=== PATIENT | male | born 1950 | race Caucasian/White ===

== ENCOUNTER 2020-01-03 00:14 | Day surgery (SDC) | payer MEDICARE, SELFPAY ==
[2019-12-28 13:14] VITALS: BMI 30.4
[2020-01-03 08:48] VITALS: BP 136/93; PULSE 58; RESP 16; TEMP 36.6; O2SAT 99; BMI 29.3
[2020-01-03] MEDS: LACTATED RINGERS 1,000 ML 150 ML IV CONT (09:02)
[2020-01-03 09:09] LABS: Glucose Point of Care 111 (65-105)
--- NOTE | 2020-01-03 09:11 | WPDANESEPPF ---
Anes - Initial Pre Proc Eval Procedure: Operation Date: 01/03/20 09:30 Proposed Procedures p Screening Colonoscopy - Piotr Taylor MD Date/Time: 01/03/20 09:11 Surgeon: Piotr Taylor MD Pre Op Diagnosis: hx colon polyps Patient Data Age: 69 Gender: M Height: 1.73 m Weight: 87.6 kg Last Vital Signs Temp 36.6 C 01/03/20 08:48 Pulse 58 L 01/03/20 08:48 Resp 16 01/03/20 08:48 BP 136/93 H 01/03/20 08:48 Pulse Ox 99 01/03/20 08:48 Allergies Allergy/AdvReac Type Severity Reaction Status Date / Time No Known Allergies Allergy Verified 01/03/20 08:47 Home Medications Medication Instructions Recorded Confirmed Type amlodipine 5 mg PO DAILY 12/28/19 12/28/19 History ezetimibe 10 mg PO DAILY 12/28/19 12/28/19 History fenofibric acid (choline) 135 mg PO DAILY 12/28/19 12/28/19 History lisinopril-hydrochlorothiazide 1 tablet PO DAILY 12/28/19 12/28/19 History metformin 500 mg PO BID 12/28/19 12/28/19 History tajaazsoggly-ism-amsp-FA-vit K 1 tablet PO DAILY 12/28/19 12/28/19 History [Adults Multivitamin] omega 5-qdi-ahb-fish oil [Fish Oil] 1 cap PO DAILY 12/28/19 12/28/19 History Laboratory Tests 01/03/20 08:59 POC Capillary Glucose 111 mg/dl H mg/dl (65-105) Patient hx anesthesia problems: none Family hx anesthesia problems: none [facility] Past Medical History Medical History (Updated 01/02/20 @ 14:16 by Caden Fukn DO) Diabetes type 2, controlled History of tuberculosis treatment completed 15-20 years ago Hyperlipidemia Hypertension Anes - Eval Final PreProcedure Day of Procedure 01/03/20 09:11 Patient weight: overweight Heart: regular rate and rhythm Lungs: clear to auscultation and normal air movement Airway: Mallampati scale class II Neurological: alert and oriented Last oral intake: >/= 8 hours ASA classification: III Emergent: no Anesthetic plan: proceed Anesthesia type and monitoring: general GIVS and standard monitoring Informed Consent: The patient's anesthetic plan and its attendant risks and benefits were discussed with the patient/family/POA. Questions were solicited and answers provided to the satisfaction of the patient/family/POA.
[2020-01-03 09:57] VITALS: BP 112/56; PULSE 58; RESP 16; O2SAT 94
--- NOTE | 2020-01-03 09:58 | WPDGICN ---
Assessment and Plan Additional Plan This is a 69-year-old white male patient seen in evaluation at the request Dr. Arellano. Patient presents for screening colonoscopy. He does have a prior history of colon polyps on previous colonoscopies. Last colonoscopy was 5 years ago. He states his current weight appetite bowel movements are normal. He has had no blood in his stools. He denies abdominal pain. His bowel habits are regular. Family history is noncontributory. Past medical history is significant for hypertension, diabetes, elevated cholesterol, current medications include metformin, amlodipine, lisinopril, fenofibrate, and vitamins. No known medical allergies. Physical exam reveals patient to be alert. Vital signs stable. HEENT exam unremarkable. Lungs are clear to auscultation and percussion. Heart is without murmur or extra sounds. Abdominal exam bowel sounds are present soft nontender with no hepatosplenomegaly. Digital external rectal exam is normal. Impression 1. Personal history of colon polyps. Plan is for screening colonoscopy every 5 years. GI Consult Note Consult date/time: 01/03/20 09:58 HPI: Arash Miller is a 69 year old male [facility] Past Medical History Medical History (Updated 01/02/20 @ 14:16 by Caden Funk, ) Diabetes type 2, controlled History of tuberculosis treatment completed 15-20 years ago Hyperlipidemia Hypertension Meds Home Medications and Allergies Home Medications Medication Instructions Recorded Confirmed Type amlodipine 5 mg PO DAILY 12/28/19 12/28/19 History ezetimibe 10 mg PO DAILY 12/28/19 12/28/19 History fenofibric acid (choline) 135 mg PO DAILY 12/28/19 12/28/19 History lisinopril-hydrochlorothiazide 1 tablet PO DAILY 12/28/19 12/28/19 History metformin 500 mg PO BID 12/28/19 12/28/19 History biglwbijwpdg-qkv-nqqw-FA-vit K 1 tablet PO DAILY 12/28/19 12/28/19 History [Adults Multivitamin] omega 6-ght-vlq-fish oil [Fish Oil] 1 cap PO DAILY 12/28/19 12/28/19 History Allergies Allergy/AdvReac Type Severity Reaction Status Date / Time No Known Allergies Allergy Verified 01/03/20 08:47 Vital Signs Vital Signs - 24 hr 01/03/20 08:48 Temperature 36.6 C Pulse Rate 58 L Respiratory Rate 16 Blood Pressure 136/93 H Pulse Oximetry 99
[2020-01-03 10:07] VITALS: BP 112/67; PULSE 56; RESP 16; O2SAT 97
[2020-01-03 10:17] VITALS: BP 110/58; PULSE 56; RESP 16; O2SAT 98
== END 2020-01-03 10:35 | disposition home or self-care (01) ==
PROVIDERS: PCP Internal Medicine; Visit Provider Internal Medicine Gastroenterology
PROC: 0DJD8ZZ Inspection of Lower Intestinal Tract, Via Natural or Artificial Opening Endoscopic (ICD-10-PCS; CPT 45378; principal; 2020-01-03 09:30)
DX: Z12.11 Encounter for screening for malignant neoplasm of colon (principal); D12.3 Benign neoplasm of transverse colon; K57.30 Diverticulosis of large intestine without perforation or abscess without bleeding; K64.8 Other hemorrhoids; I10 Essential (primary) hypertension; E78.00 Pure hypercholesterolemia, unspecified; E11.9 Type 2 diabetes mellitus without complications; Z79.84 Long term (current) use of oral hypoglycemic drugs; Z86.11 Personal history of tuberculosis
CPT/HCPCS: 45385; 88305; J2704; J7120

== ENCOUNTER 2020-08-26 14:31 | Outpatient (CLI) | payer MEDICARE, SELFPAY ==
--- NOTE | ~2020-08-26 | CT_ITS ---
EXAMINATION: CT abdomen pelvis wo/w con DATE: 08/26/2020 15:13 INDICATION: Kidney mass. TECHNIQUE: Computed tomography (CT) of the abdomen and pelvis was performed without and with 100 mL O mnipaque 350 intravenous contrast. Automated exposure control and iterative reconstruction technique were employed. The dose-length product was 1776.66 mGy-cm. COMPARISON: None. FINDINGS: The visualized portions of the lung bases demonstrate mild atelectasis. There is mild atele ctasis in the lower lobes. There is a 5 mm nodule in right lower lobe, likely benign. No pleural effu mary kate. Cardiomegaly is noted. There are coronary artery calcifications. There are calcifications of ao rtic valve. No pericardial effusion. There is diffuse hepatic steatosis. The gallbladder, spleen, mcintosh creas, and adrenal glands are normal. There is an 8 mm cyst in right kidney. There is a 3.8 cm mass i n right kidney containing fat, consistent with an angiomyolipoma. There is a 7.8 cm cyst in left kidn ey. There are 2 mm and 3 mm stones in left kidney. There is diverticulosis of the colon without evide nce of diverticulitis. The prostate is moderately enlarged. There are no dilated loops of bowel. Ther e is mild periportal lymphadenopathy, likely reactive. There is no free intraperitoneal fluid. There is mild thoracolumbar spondylosis. IMPRESSION: 1. 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 2. Small nonobstructing left kidney stones. 3. Mild periportal lymphadenopathy, likely reactive. Reviewed, dictated and finalized at location A. BILITATION MEDICINE PHYSICIAN
--- NOTE | ~2020-08-26 | XR_ITS ---
EXAMINATION: XR abdomen/kub 1V DATE: 08/26/2020 14:53 INDICATION: Kidney mass. TECHNIQUE: A supine view of the abdomen on 2 radiographs was obtained. COMPARISON: CT abdomen and pelvis 08/26/2020 FINDINGS: There are no dilated loops of bowel. There is a phlebolith in right pelvis. There is no vis ible urolithiasis. IMPRESSION: 1. No visible urolithiasis. Reviewed, dictated and finalized at location A. 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 No visible urolithiasis.
[2020-08-26 15:04] LABS: Estimated Glomerular Filt Rate > 60
== END 2020-08-26 14:32 | disposition home or self-care (01) ==
PROVIDERS: PCP Internal Medicine; Visit Provider Urology
DX: N28.89 Other specified disorders of kidney and ureter (principal); N20.0 Calculus of kidney
CPT/HCPCS: 74018; 74178; Q9967

== ENCOUNTER 2025-09-16 14:20 | Outpatient (CLI) | payer MEDICARE, SELFPAY ==
--- NOTE | ~2025-09-16 | XR_ITS ---
EXAMINATION: XR chest 2V, 09/16/2025 14:35 ECOMMERCE MERCHANDISING MANAGER HISTORY: SOB X 4 DAYS COMPARISON: No comparisons available. Technique: 2 views obtained. Findings: Small basilar infiltrates. No pneumothorax. Heart is normal size. Mediastinal and hilar contours are within normal limits. Post sternotomy. There are remote right-sided rib fractures. Impression: Early basilar pneumonia suspected Reviewed, dictated and finalized at location P. MERCE MERCHANDISING MANAGER Impression: Early basilar pneumonia suspected
--- OUTSIDE RECORDS SUMMARY | 2025-09-16 17:07 | XMS_ITS | Clinical Summary ---
Author Organization [facility] HealthCare Care Team Providers Care Occasional Caregiver Name Role Phone Lobito Fountain MD Unavailable [phone] Mejia Damon MD Unavailable Mago Gan NP Unavailable [phone] Kelvin Arellano MD Primary Care Provider Allergies Active Allergy Reactions Criticality Noted Date Comments Yurnzri-Yhp-Ldl Reductase Inhibitors Other (See comments) Low 05/15/2021 Problem with labs Medications amLODIPine (NORVASC) 5 mg tablet Take 1 tablet (5 mg total) by mouth daily Active metFORMIN (GLUMETZA) 500 mg 24 hr tabletIndication s:Start taking from 10/15/24. Take 1 tablet (500 mg total) by mouth 2 (two) times a day with meals Active ezetimibe (ZETIA) 10 mg tablet Take 1 tablet (10 mg total) by mouth daily Active aspirin 81 mg enteric coated tablet Take 1 tablet (81 mg total) by mouth daily Active Farxiga 10 mg tablet Take 1 tablet (10 mg total) by mouth every morning 08/29/2024 Active lisinopriL (PRINIVIL,ZESTRI L) 10 mg tablet Take 2 tablets (20 mg total) by mouth daily 08/06/2024 Active metoprolol tartrate (LOPRESSOR) 50 mg immediate release tablet Take 1 tablet (50 mg total) by mouth 2 (two) times a day Active atorvastatin (LIPITOR) 10 mg tabletIndication s:hyperlipidemia Take 1 tablet (10 mg total) by mouth daily Active docusate sodium (COLACE) 100 mg capsuleIndicatio ns:constipation Take 1 capsule (100 mg total) by mouth daily Active clopidogreL (PLAVIX) 75 mg tabletIndication s:myocardial infarction prevention,cardi ovascular disease Take 1 tablet (75 mg total) by mouth daily 30 tablet 11 10/13/2024 10/13/[address] (Protonix) 40 mg EC tablet Take 1 tablet (40 mg total) by mouth daily 10/15/2024 Active tamsulosin (FLOMAX) 0.4 mg extended release capsuleIndicatio ns:Benign prostatic hyperplasia, unspecified whether lower urinary tract symptoms present Take 1 capsule (0.4 mg total) by mouth daily 90 capsule 3 08/09/2025 Active Active Problems Problem Noted Date Diagnosed Date CAD S/P percutaneous coronary angioplasty 2023 NSTEMI (non-ST elevated myocardial infarction) 0 07/06/2024 HTN (hypertension) 07/06/2024 Dyslipidemia associated with type 2 diabetes latrice litus 07/06/2024 Acute cystitis without hematuria 07/06/2024 Chronic diastolic congestive heart failure 07/06 Controlled type 2 diabetes m ellitus without complication, without long-term current use of insulin 07/06/2024 Gastroesophageal reflux disease without esophagi tis 07/06/2024 Coronary artery disease invo lving [place] heart without angina pectoris 05/07/2021 Overview (05/07/2021): Added automatically from request for surgery [id number] Aortic valve stenosis 05/07/2021 Overview (05/07/2021): Added automatically from request for surgery [id number] Encounters Date Type Department Care Team Description 08/09/2025 9:40 AM CDT Office Visit [facility]) - Health system Medicine Urology [id number] [place] [address] Medical Office Building [address] [place] [address] Mago Gan, MOLD DESIGNER Benign prostatic hyperplasia, unspecified whether lower urinary tract symptoms present (Primary Dx); History of urinary retention from Last 3 Months Surgical History Surgery Date Site/Laterality Comments ORAL SURGERY Medical History Medical History Date Comments Coronary artery disease Hypertension Hyperlipidemia Type 2 diabetes mellitus Aortic stenosis Cataract Heart murmur GERD (gastroesophageal reflux disease) Headache Incontinence of urine Coronary artery disease invo lving [place] heart without angina pectoris, unspecified vessel or lesion type Family History Medical History Relation Name Comments Heart attack Father Heart disease Father Hyperlipidemia Mother Relation Name Status Comments Father Mother Social History Tobacco Use Types Packs/Day Years Used Date Smoking Tobacco: Former Cigarettes Q uit: 05/18/2006 Cigars Smokeless Tobacco: Never Tobacco Cessation:Counseling Given: Not Answered AUDIT-C Answer Date Recorded Q1: How often do you have a drink containing alc ohol? Monthly or less 10/11/2024 Q2: How many drinks containi ng alcohol do you have on a typical day when you are drinking? 1 or 2 10/11/2024 Q3: How often do you have si x or more drinks on one occasion? Never 10/11/2024 PHQ-2 Answer Date Recorded PHQ-2 Total Score (If total score is 3 or more points, staff should administer the PHQ-9) 0 11/06/2024 Personal Safety Answer Date Recorded Have you ever been in or are you currently in a harmful physical or emotional relationship or is someone making you feel afraid or unsafe? 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 Gender Identity Male 05/11/2021 3:55 PM CDT Sexual Orientation Not on file Last Filed Vital Signs Vital Sign Reading Time Taken Comments Blood Pressure 140/72 01/31/2025 10:16 AM CDT Pulse 64 01/31/2025 10:16 AM CDT Temperature 36.8 C (98.2 F) 10/12/2024 11:53 AM PERFECT BIND MACHINE OPERATOR Respiratory Rate 16 01/31/2025 10:16 AM CDT Oxygen Saturation 96% 01/31/2025 10:16 AM CDT Inhaled Oxygen Concentration - - Weight 95.3 kg (210 lb 3.2 oz) 05/10/2025 11:00 AM CDT Height 167.6 cm (5' 6) 01/31/2025 10:16 AM CDT Body Mass Index 33.93 01/31/2025 10:16 AM CDT Plan of Treatment Health Maintenance Due Date Last Done Comments Albumin Creatinine Ratio, Urine 1950 Colon Cancer Screening-Colonoscopy 1950 Hemoglobin A1C 1950 Hepatitis C Screening 1950 Dilated Eye Exam 1950 Foot Exam 1950 Well Visit 65+ 2016 DTaP/Tdap/Td Vaccine (1 - Tdap) 11/28/2019 0, 07/01/2005 Covid-19 Vaccine (4 - 2024-2 6 season) 2025 08/09/2021, 01/14/2021, 12/20/2020 Influenza Vaccine (#1) 2025 , 07/21/2020, 07/21/2020, Additional history exists Lipid Panel 07/07/2025 07/07/2024, 06/01/2021 Fall Risk Assessment 10/12/2025 10/12/2024 eGFR 10/12/2025 10/12/2024, 06/24, 07/08/2024, Additional history exists Depression Screening 11/06/2025 11/06/2024 Hepatitis B Screening Completed 01/06/2018 Pneumococcal vaccine 65+ Completed 03/23/2019, 03/26 Zoster Vaccine Completed 04/22/2020, 03/26, 11/27/2019, Additional history exists Abdominal Aortic Aneurysm (A AA) Screen Completed 07/07/2024 Medical Devices Implanted Type Area Sail Finisher Machine Device Identifier Shelf Expiration Date Model / Serial / Lot Rodrigues Lifesciences [id number] Inspiris Resilia Leaflet Sewing Ring 23mm Valve Aortic Bovine - [id number] - [id number] Implanted:Qty: 1 on 05/25/2021 by Lobito Fountain MD at [facility] N/A: Heart [employer] 11/13/2024 [id number] / [id number] / [place] [employer] Angel Synergy Xd 3.5mm 48mm System Coronary Stent Everolimus [id number] - [id number] Implanted:Qty: 1 on 10/11/2024 by Mejia Damon MD at [facility] [employer] Scientific Angel 02/05/2026 [id number] / / [id number] [place] [employer] Angel Stent Coronary Drug Eluting Rapid Exchange Synergy Xd [id number] [place] Chromium [id number] - [id number] Implanted:Qty: 1 on 10/11/2024 by Mejia Damon MD at [facility] SnapNames Angel 05/02/2026 [id number] / / [id number] Wally Vascular System Closure Repair Femoral Artery Suture Mediated Perclose Prostyle [id number] - [id number] Implanted:Qty: 1 on 10/11/2024 by Mejia Damon MD at [facility] [employer] 06/23/2026 [id number] / / [id number] Victor Angio-Seal Vip 6fr Closere Device [id number] - [id number] Implanted:Qty: 1 on 10/11/2024 by Mejia Damon MD at [facility] Positive NetworksInstapio [id number] / / Procedures Procedure Name Priority Date/Time Associated Diagnosis Comments MEASURE POST VOID RESIDUAL Routine 08/09/2025 9:40 AM CDT Benign prostatic hyperplasia, unspecified whether lower urinary tract symptoms present EGFR Routine 10/12/2024 2:22 AM PERFECT BIND MACHINE OPERATOR CT ABDOMEN PELVIS WO CONTRAST IP Routine 07/07/2024 1:01 PM CDT LIPID PANEL Timed 07/07/2024 5:44 AM CDT from Last 3 Months or Most Recently Relevant to Health Maintenance Results * Measure post void residual (08/09/2025 9:40 AM CDT) Zahira Adams LPN - 08/09/2025 9:40 AM CDT Measurement of post-voiding residual urine and/or bladder capacity by ultrasound, non-imaging. PVR = 7 mL us Mago Gan MOLD DESIGNER NURSING ASSESSMENTS Final Res ult * eGFR (10/12/2024 2:22 AM PERFECT BIND MACHINE OPERATOR) eGFR >90 >=60 mL/min/1. 73 m2 Comment: Interpretive Data Reference Interval Normal >/= 90 mL/min/1.73m2 Mildly decreased* 60 - 89 mL/min/1.73m2 Mildly to moderately decreased 45 - 59 mL/min/1.73m2 Moderately to severely decreased 30 - 44 mL/min/1.73m2 Severely decreased 15 - 29 mL/min/1.73m2 Kidney Failure < 15 mL/min/1.73m2 *Relative to young adult level Estimated glomerular filtration rate is determined by the 2020 CKD-EPI equation recommended by the National Kidney Foundation (A Unifying Approach to GFR Estimation: Recommendations of the NKF-ASK Task Force on Reassessing the Inclusion of Race in Diagnosing Kidney Disease, JASN 2020). The CKD-EPI equation should not be used for patients with unstable renal function and has not been validated in children and those over 70. Current interpretive data was last reviewed 2021. Blood 10/12/2024 2:22 AM PERFECT BIND MACHINE OPERATOR 10/12/2024 3:00 AM PERFECT BIND MACHINE OPERATOR us Mejia Damon MD LAB BLOOD ORDERABLES Final Resul t PAUL [id number] Department of Laboratories [place], [place] [id number] * CT Abdomen Pelvis WO Contrast (07/07/2024 1:01 PM CDT) Anatomical Region Laterality Modality Body N/A Computed Tomogra phy 07/07/2024 1:36 PM CDT Impressions 07/07/2024 1:36 PM CDT NO ACUTE INTRA-ABDOMINAL FINDINGS BASAL PULMONARY NODULES ARE NEW, RECOMMEND FLEISCHNER CRITERIA FOLLOW-UP Electronically signed by: Delonte Guerra M.D. Narrative 07/07/2024 1:36 PM CDT EXAMINATION: CT ABDOMEN PELVIS WO CONTRAST DATE: 07/07/2024 12:50 PM CLINICAL HISTORY: Flank pain, kidney stone suspected TECHNIQUE: Axial CT imaging of the abdomen and pelvis performed without oral or intravenous contrast. 2-D Reformatted images are obtained. Evaluation of solid organs, bowel wall and vascular structures is limited due to the lack of IV contrast. COMPARISON: None FINDINGS: LOWER THORAX: There is a 3 mm nodule in the mid right lung base. There is a 5 mm nodule and perhaps one or 2 other subpleural smaller nodules in the left lung base. Chronic linear scarring is also noted in each lung base. LIVER: Steatosis BILIARY: Normal appearance of the gallbladder with no biliary ductal dilatation. as visualized. SPLEEN: Normal in appearance as visualized. PANCREAS: Normal in appearance ADRENALS: Normal in appearance KIDNEYS: Normal renal outlines. No sign of hydronephrosis. 7 cm left renal cyst GI TRACT: The bowel is normal in caliber. There is diffuse diverticulosis. No free intraperitoneal air is present. APPENDIX: Normal in appearance ABDOMINAL WALL: Small bilateral fat-containing inguinal hernias. RETROPERITONEUM/LYMPH/MESENTERIC NODES: No retroperitoneal or mesenteric lymphadenopathy identified. VESSELS: The great vessels of the abdomen are unremarkable. PELVIC ORGANS: Bladder is normal in appearance.. Mild prostate enlargement.. BONES: The visualized osseous structures are intact. No suspicious osteolytic or osteoblastic lesions. . Procedure Note Delonte Guerra MD - 07/07/2024 EXAMINATION: CT ABDOMEN PELVIS WO CONTRAST DATE: 07/07/2024 12:50 PM CLINICAL HISTORY: Flank pain, kidney stone suspected TECHNIQUE: Axial CT imaging of the abdomen and pelvis performed without oral or intravenous contrast. 2-D Reformatted images are obtained. Evaluation of solid organs, bowel wall and vascular structures is limited due to the lack of IV contrast. COMPARISON: None FINDINGS: LOWER THORAX: There is a 3 mm nodule in the mid right lung base. There is a 5 mm nodule and perhaps one or 2 other subpleural smaller nodules in the left lung base. Chronic linear scarring is also noted in each lung base. LIVER: Steatosis BILIARY: Normal appearance of the gallbladder with no biliary ductal dilatation. as visualized. SPLEEN: Normal in appearance as visualized. PANCREAS: Normal in appearance ADRENALS: Normal in appearance KIDNEYS: Normal renal outlines. No sign of hydronephrosis. 7 cm left renal cyst GI TRACT: The bowel is normal in caliber. There is diffuse diverticulosis. No free intraperitoneal air is present. APPENDIX: Normal in appearance ABDOMINAL WALL: Small bilateral fat-containing inguinal hernias. RETROPERITONEUM/LYMPH/MESENTERIC NODES: No retroperitoneal or mesenteric lymphadenopathy identified. VESSELS: The great vessels of the abdomen are unremarkable. PELVIC ORGANS: Bladder is normal in appearance.. Mild prostate enlargement.. BONES: The visualized osseous structures are intact. No suspicious osteolytic or osteoblastic lesions. . IMPRESSION: NO ACUTE INTRA-ABDOMINAL FINDINGS BASAL PULMONARY NODULES ARE NEW, RECOMMEND FLEISCHNER CRITERIA FOLLOW-UP Electronically signed by: Delonte Guerra M.D. us Gini Montes MD IMG CT PROCEDURES Final R esult * (ABNORMAL) Lipid panel (07/07/2024 5:44 AM CDT) Cholesterol 98 30 - 199 mg/dL Comment: Interpretive Data Ages < or = 19 years Acceptable: <170 mg/dL Borderline high: 170-199 mg/dL High: >or= 200 mg/dL Ages > or = 20 years Desirable: <200 mg/dL Borderline high: 200-239 mg/dL High: >or= 240 mg/dL Literature References: 1. Expert Panel on Integrated Guidelines for Cardiovascular Health and Risk Reduction in Children and Adolescents. Pediatrics 2011;128:S213 2. NCEP Expert Panel. Circulation 2004;110:227 Current Interpretive Data was last revised on 2018. Triglycerides 119 <=149 mg/dL PAUL Comment: Interpretive Data Ages < or = 9 years Acceptable: <75 mg/dL Borderline high: 75-99 mg/dL High: >or= 100 mg/dL Ages 10 to 20 years Acceptable: <90 mg/dL Borderline high: 90-129 mg/dL High: >or= 130 mg/dL Ages > or = 20 years Desirable: <150 mg/dL Borderline high: 150-199 mg/dL High: 200-499 mg/dL Very high: >or= 499 mg/dL Literature References: 1. Expert Panel on Integrated Guidelines for Cardiovascular Health and Risk Reduction in Children and Adolescents. Pediatrics 2011;128:S213 2. NCEP Expert Panel. Circulation 2004;110:227 Current Interpretive Data was last revised on 2018. HDL 32(L) >=40 mg/dL PAUL Comment: Interpretive Data Ages < or = 19 years Acceptable: >45 mg/dL Borderline low: 40-45 mg/dL Low: <40 mg/dL Ages > or = 20 years Desirable: >or= 60 mg/dL Low: <40 mg/dL Literature References: 1. Expert Panel on Integrated Guidelines for Cardiovascular Health and Risk Reduction in Children and Adolescents. Pediatrics 2011;128:S213 2. NCEP Expert Panel. Circulation 2004;110:227 Current Interpretive Data was last revised on 2018. LDL, calculated 44 <=129 mg/dL PAUL ORNELAS Comment: Interpretive Data Ages < or = 19 years Acceptable: <110 mg/dL Borderline high: 110-129 mg/dL High: >or= 130 mg/dL Ages > or = 20 years Optimal: <100 mg/dL Near optimal: 100-129 mg/dL Borderline high: 130-159 mg/dL High: >160 mg/dL Calculated using the Davi LDL-C estimating equation. This equation was implemented on 2024. Prior to this date LDL-C was estimated using the Friedewald equation. Literature References: 1. Expert Panel on Integrated Guidelines for Cardiovascular Health and Risk Reduction in Children and Adolescents. Pediatrics 2011;128:S213 2. NCEP Expert Panel. Circulation 2004;110:227 3. Davi Coleman et al. CANDACE Cardiol. 2019February 21;5(5):540-548. doi: 10.1001/[email or web address].2020.0013 Current Interpretive Data was last revised on 2024. Non-HDL Cholesterol 66 mg/dL PAUL ORNELAS Comment: Interpretive Data Ages < or = 19 years Acceptable: <120 mg/dL Borderline high: 120-144 mg/dL High: >145 mg/dL Ages > or = 20 years When triglycerides are >200 mg/dL, Non-HDL cholesterol is a secondary target of therapy with treatment goals that are 30 mg/dL greater than the LDL cholesterol target. Literature References: 1. Expert Panel on Integrated Guidelines for Cardiovascular Health and Risk Reduction in Children and Adolescents. Pediatrics 2011;128:S213 2. NCEP Expert Panel. Circulation 2004;110:227 Current Interpretive Data was last revised on 2018. Chol/HDL ratio 3 PAUL Blood 07/07/2024 5:44 AM CDT 07/07/2024 5:52 AM CDT Narrative PAUL - 07/07/2024 8:27 AM CDT This lipid panel was automatically ordered due to a significant change in Troponin. The dietary status of the patient at the collection time should be correlated with the lipid results. us Bernice Tabares NP LAB BLOOD ORDERABLES Tawanna carreno Result PA[facility] [id number] [place] [address] from Last 3 Months or Most Recently Relevant to Health Maintenance Insurance [facility] MEDICARE ADVANTAGE [facility] MEDIC[facility] Address: [place] [address] [address] HMO REF [facility] Address: [place] [address] R HMO REF [facility] Address: [address] [address] [place] [address] [facility] MEDICARE ADVANTAGE [facility]IC[facility] Address: [address] [address] [place] [address] Advance Directives For more information, please contact: [phone] Documents on File Type Date Recorded Patient Room Service Food Server Expl anation ADVANCE DIRECTIVE 06/02/2021 10:32 AM * Full Code (Latest Code Status on File) Date Activated Date Inactivated Comments 10/11/2024 11:26 AM 10/12/2024 6:47 PM * Full Code Date Activated Date Inactivated Comments 07/06/2024 6:21 PM 07/09/2024 9:59 PM * Full Code Date Activated Date Inactivated Comments 05/25/2021 2:52 PM 06/01/2021 7:01 PM Care Teams Occasional Caregiver Relationship Specialty Start Date End Date Kelvin Arellano MD [address] [place] [address] PCP - General Internal Medicine 07/23/24 Lobito Fountain MD Surgeon Cardiothoracic Surgery 06/01/21 Mejia Damon MD [address] [place] [address] Consulting Physician Cardiovascular Disease 06/01/21 Mago Gan, DWIGHT [address] [place] [address] [place] [address] Nurse Practitioner Urology 07/09/24
== END 2025-09-16 14:21 | disposition home or self-care (01) ==
LOC: ANHIMG 14:27
PROVIDERS: PCP Internal Medicine
DX: R91.8 Other nonspecific abnormal finding of lung field (principal); R06.02 Shortness of breath
CPT/HCPCS: 71046